=== PATIENT | male | born 2005 | race Two or more races ===

== ENCOUNTER 2024-05-06 23:19 | Emergency (ER) | payer MEDICAID ==
[~2024-05-06] VITALS: Ht 175.3 cm; Wt 86.2 kg
[2024-05-06 23:25] VITALS: TEMP 98.1
[2024-05-06] MEDS ORDERED: LIDOCAINE 1%-EPI 1:100,000 20 ML VIAL ONE (23:57)
[2024-05-07] MEDS ORDERED: TDAP [DIPH/PERTUSSIS/TET] 0.5 ML VIAL IM ONE (00:22)
[2024-05-07] MEDS: TDAP [DIPH/PERTUSSIS/TET] 0.5 ML VIAL IM ONE (00:24)
[2024-05-07 05:01] VITALS: BP 109/71; O2SAT 98
== END 2024-05-07 05:02 | disposition home or self-care (01) ==
LOC: ER 23:22
DX: S01.111A Laceration without foreign body of right eyelid and periocular area, initial encounter (principal); F10.129 Alcohol abuse with intoxication, unspecified; R51.9 Headache, unspecified; W05.1XXA Fall from non-moving nonmotorized scooter, initial encounter; Y93.89 Activity, other specified; Y92.89 Other specified places as the place of occurrence of the external cause; Y99.8 Other external cause status; Y90.9 Presence of alcohol in blood, level not specified
CPT/HCPCS: 12011; 70450; 90471; 90715; 99285; J3490